=== PATIENT | female | born 1980 ===

== ENCOUNTER 2016-08-10 22:58 | Emergency (ER) | payer MEDICAID, OTHER ==
[2016-08-10 22:58] VITALS: BMI 27.6
[2016-08-10 23:04] VITALS: BP 129/80; PULSE 92; RESP 18; TEMP 98.4; O2SAT 100
[2016-08-10] MEDS ORDERED: Albuterol-Ipratrop 3 mg / 0.5 (3 ml) UD INH STA (23:11)
--- NOTE | 2016-08-10 23:14 | ED PDOC ---
HPI: CCC, URI, Sore Throat Time Seen by Provider: 08/10/16 23:12 Chief Complaint (Nursing): ENT Problem Chief Complaint (Provider): sore throat/cough History Per: Patient (36 y/o female h/o seasonal allergies here with worsening nasal congestion over few weeks now associated with cough/sob/facial pain/sore throat. Denies any smoking. Denies any fevers/chills. Has been on Claritin or Zyrtec intermittently for allergy symptoms.) Past Medical History Reviewed: Historical Data, Nursing Documentation, Vital Signs Vital Signs: Last Vital Signs Temp 98.4 F 08/10/16 23:01 Pulse 92 H 08/10/16 23:01 Resp 18 08/10/16 23:01 BP 129/80 08/10/16 23:01 Pulse Ox 100 08/10/16 23:46 - Surgical History Surgical History: Cholecystectomy (2006) - Family History Family History: States: No Known Family Hx - Home Medications Home Medications: Ambulatory Orders Medication Instructions Recorded Vit Calc,Iron,Folic 1 each PO DAILY 04/02/16 [ Vitamins] Albuterol HFA [Ventolin HFA 90 2 puff IH [id number] PRN #1 inhaler 08/10/16 mcg/actuation (8 g)] Azithromycin [Zithromax] 1 tab PO DAILY #6 tab 08/10/16 Cetirizine HCl [Zyrtec] 10 mg PO DAILY #15 capsule 08/10/16 Fluticasone Nasal [Flonase] 2 actuation NS DAILY #1 bottle 08/10/16 Pseudoephedrine [Sudafed Tab] 60 mg PO Q6 PRN #24 tab 08/10/16 predniSONE [predniSONE Tab] 3 tab PO DAILY #12 tab 08/10/16 - Allergies Allergies/Adverse Reactions: Allergies Allergy/AdvReac Type Severity Reaction Status Date / Time fruit Allergy Intermediate ITCHING Uncoded 03/02/16 10:48 Review of Systems ROS Statement: Except As Marked, All Systems Reviewed And Found Negative ENT: Positive for: Nose Congestion, Throat Pain Respiratory: Positive for: Cough, Shortness of Breath Physical Exam - Reviewed Nursing Documentation Reviewed: Yes Vital Signs Reviewed: Yes - Physical Exam Appears: Positive for: Well, Non-toxic, No Acute Distress Head Exam: Positive for: ATRAUMATIC, NORMAL INSPECTION, NORMOCEPHALIC Skin: Positive for: Normal Color, Warm, DRY Eye Exam: Positive for: EOMI, Normal appearance, PERRL ENT: Positive for: Normal ENT Inspection Neck: Positive for: Normal, Painless ROM Cardiovascular/Chest: Positive for: Regular Rate, Rhythm Respiratory: Positive for: Normal Breath Sounds, Other (diminished breath sounds ) Gastrointestinal/Abdominal: Positive for: Normal Exam, Bowel Sounds, Soft Back: Positive for: Normal Inspection Extremity: Positive for: Normal ROM Neurologic/Psych: Positive for: Alert, Oriented - ECG O2 Sat by Pulse Oximetry: 100 - Progress ED Course And Treament: Prednisone 60mg x 1 dose Duoneb x 1 dose Disposition - Clinical Impression Clinical Impression: Bronchitis, Sinusitis - Patient ED Disposition Is Patient to be Admitted: No - Disposition Disposition: Routine/Home Disposition Time: 23:43 Condition: FAIR Prescriptions: Albuterol HFA [Ventolin HFA 90 mcg/actuation (8 g)] 2 puff IH [id number] PRN #1 inhaler PRN Reason: Shortness Of Breath Azithromycin [Zithromax] 1 tab PO DAILY #6 tab Cetirizine HCl [Zyrtec] 10 mg PO DAILY #15 capsule Fluticasone Nasal [Flonase] 2 actuation NS DAILY #1 bottle predniSONE [predniSONE Tab] 3 tab PO DAILY #12 tab Pseudoephedrine [Sudafed Tab] 60 mg PO Q6 PRN #24 tab PRN Reason: Nasal Congestion Instructions: Allergic Rhinitis (ED), Acute Bronchitis (ED) Forms: [facility] ED School/Work Excuse
[2016-08-10] MEDS ORDERED: Albuterol-Ipratrop 3 mg / 0.5 (3 ml) UD ONE ×2 (23:15→23:38)
== END 2016-08-11 00:22 | disposition home or self-care (01) ==
LOC: H.ER 22:58
DX: J20.9 Acute bronchitis, unspecified (principal); J32.9 Chronic sinusitis, unspecified

== ENCOUNTER 2017-09-08 21:34 | Emergency (ER) | payer MEDICAID ==
[2017-09-08 21:34] VITALS: BMI 27.6
--- NOTE | 2017-09-08 22:44 | ED PDOC ---
HPI: Abdomen Time Seen by Provider: 09/08/17 22:24 Chief Complaint (Nursing): GI Problem Chief Complaint (Provider): Abdominal Pain History Per: Patient History/Exam Limitations: no limitations Onset/Duration Of Symptoms: Days (x4) Current Symptoms Are (Timing): Still Present Location Of Pain/Discomfort: Diffuse Quality Of Discomfort: "Pain" Associated Symptoms: Diarrhea (loose watery) Additional Complaint(s): 37 year old female with a history of cholecystectomy presents to the ED with diffuse abdominal pain onset 4 days associated loose watery diarrhea. Patient denies fever, bleeding, vomiting, or any other medical complaints. PMD: Dr. Wang Abnormal Vaginal Bleeding: No Past Medical History Reviewed: Historical Data, Nursing Documentation, Vital Signs Vital Signs: Last Vital Signs Temp 98.1 F 09/08/17 21:56 Pulse 85 09/08/17 21:56 Resp 16 09/08/17 21:56 BP 127/84 09/08/17 21:56 Pulse Ox 99 09/08/17 22:46 - Medical History PMH: No Chronic Diseases - Surgical History Surgical History: Cholecystectomy (2006) - Family History Family History: States: Unknown Family Hx - Home Medications Home Medications: Ambulatory Orders Medication Instructions Recorded Vit Calc,Iron,Folic 1 each PO DAILY 04/02/16 [ Vitamins] Albuterol HFA [Ventolin HFA 90 2 puff IH [id number] PRN #1 inhaler 08/10/16 mcg/actuation (8 g)] Azithromycin [Zithromax] 1 tab PO DAILY #6 tab 08/10/16 Cetirizine HCl [Zyrtec] 10 mg PO DAILY #15 capsule 08/10/16 Fluticasone Nasal [Flonase] 2 actuation NS DAILY #1 bottle 08/10/16 Pseudoephedrine [Sudafed Tab] 60 mg PO Q6 PRN #24 tab 08/10/16 predniSONE [predniSONE Tab] 3 tab PO DAILY #12 tab 08/10/16 - Allergies Allergies/Adverse Reactions: Allergies Allergy/AdvReac Type Severity Reaction Status Date / Time fruit Allergy Intermediate ITCHING Uncoded 03/02/16 10:48 Review of Systems ROS Statement: Except As Marked, All Systems Reviewed And Found Negative Gastrointestinal: Positive for: Abdominal Pain (diffuse), Diarrhea (loose watery ) Physical Exam - Reviewed Nursing Documentation Reviewed: Yes Vital Signs Reviewed: Yes - Physical Exam Appears: Positive for: Non-toxic, No Acute Distress Head Exam: Positive for: ATRAUMATIC, NORMOCEPHALIC Skin: Positive for: Normal Color, Warm, Dry Eye Exam: Positive for: EOMI, Normal appearance, PERRL ENT: Positive for: Other (dry mucous membranes) Neck: Positive for: Normal, Painless ROM, Supple Cardiovascular/Chest: Positive for: Regular Rate, Rhythm. Negative for: Murmur Respiratory: Positive for: Normal Breath Sounds. Negative for: Respiratory Distress Gastrointestinal/Abdominal: Positive for: Tenderness (epigastric and periumbilical). Negative for: Distended, Guarding, Rebound Back: Negative for: L CVA Tenderness, R CVA Tenderness Extremity: Positive for: Normal ROM (upper and lower) - Laboratory Results Result Diagrams: 09/08/17 22:58 09/08/17 22:58 - ECG O2 Sat by Pulse Oximetry: 99 (RA) Pulse Ox Interpretation: Normal Medical Decision Making Medical Decision Making: Time: 22:38 Initial Plan: --CT abd & pelvis --CMP --Urine preg --Urine dip --CBC with differentials --NS Scribe Attestation: Documented by Mikki Umanzor, acting as a scribe for Peyman Lee MD Provider Scribe Attestation: All medical record entries made by the Scribe were at my direction and personally dictated by me. I have reviewed the chart and agree that the record accurately reflects my personal performance of the history, physical exam, medical decision making, and the department course for this patient. I have also personally directed, reviewed, and agree with the discharge instructions and disposition. Disposition - Clinical Impression Clinical Impression: Abdominal pain - Patient ED Disposition Is Patient to be Admitted: Transfer of Care - Disposition Disposition: Transfer of Care Disposition Time: 23:59 Condition: FAIR Forms: [employer] (N[place]ien) Patient Signed Over To: Chirag Kumar
[2017-09-08] MEDS: Sodium Chloride 0.9% 1,000 ML IV STA (23:02)
[2017-09-08 23:06] LABS: BASO % 0.4 % (0.0-2.0); EOS % 0.2 % (0.0-4.0); HEMOGLOBIN 12.5 g/dL (12.0-16.0); LYMPH # 1.5 K/uL (1.0-4.3); MEAN CELL VOLUME 87.6 fl (81.0-99.0); MEAN CORPUSCULAR HEMOGLOBIN 29.5 pg (27.0-31.0); MEAN CORPUSCULAR HGB CONC 33.7 g/dL (33.0-37.0); MEAN PLATELET VOLUME 7.6 fl (7.2-11.7); MONO # 0.7 K/uL (0.0-0.8); MONO % 8.6 % (0.0-10.0); NEUT % 72.8 % (50.0-75.0); RBC 4.24 Mil/uL (3.80-5.20); RED CELL DISTRIBUTION WIDTH 13.8 % (11.5-14.5); WHITE BLOOD COUNT 8.3 K/uL (4.8-10.8)
[2017-09-08 23:13] LABS: ALB/GLOB RATIO 1.1 (1.0-2.1); ALBUMIN 3.8 g/dL (3.5-5.0); ALT/SGPT 71 U/L (9-52); AST/SGOT 59 U/L (14-36); BLOOD UREA NITROGEN 7 mg/dl (7-17); CALCIUM 9.1 mg/dL (8.4-10.2); GFR AFRICAN-AMERICAN > 60; GFR NON-AFRICAN AMERICAN > 60
[2017-09-08] MEDS ORDERED: Iohexol 300 100 ML IJ ONE (23:35)
[2017-09-08] MEDS ORDERED: Sodium Chloride 0.9% 50 ML IV ONE (23:36)
--- NOTE | 2017-09-09 00:11 | ED PDOC ---
- Laboratory Results Result Diagrams: 09/08/17 22:58 09/08/17 22:58 - ECG O2 Sat by Pulse Oximetry: 99 (RA) Medical Decision Making Medical Decision Makin:00 Patient care endorsed from Dr. Lee to Dr. Kumar pending CT results. 00:55 CT Abd / Pelvis IV contrast FINDINGS: Lung bases: Dependent microatelectasis ABDOMEN: Liver: Mild hepatic steatosis. Gallbladder and bile ducts: Prior cholecystectomy without CT complications. No ductal dilation. Pancreas: Unremarkable. No mass. No ductal dilation. Spleen: Unremarkable. No splenomegaly. Adrenals: Unremarkable. No mass. Kidneys and ureters: No hydronephrosis or differential renal nephrogram. Bilateral extrarenal pelves. Stomach and bowel: Disorganized appearance to the small bowel with serosal margin induration appear fluid-filled non-pathologically distended loops, and collapsed loops without focal transition. There is liquid stool in the colon. Small fat-containing non-bowel containing umbilical hernia. PELVIS: Appendix: Normal appendix.Retrocecal appendix directed cephalad.. Partially fluid distended which is felt to be secondary. Bladder: Unremarkable. No mass. Reproductive: Uterus is mildly prominent likely a reflection of parity or myomata. Nonspecific 3 cm endometrium. Bilateral ovarian follicles including a dominant cyst 3.2 cm left ovarian follicle. If gynecologic source of the patient 's symptoms is suspected additional imaging recommended ABDOMEN and PELVIS: Intraperitoneal space: On series 2 image 57 there is a nonspecific 9 mm rounded fluid attenuation structure in the mesentery. Trace amount of free pelvic fluid of unclear origin or significance.No free air. Bones/joints: No acute fracture. No dislocation. Soft tissues: See above. Vasculature: Unremarkable. No abdominal aortic aneurysm. Lymph nodes: Unremarkable. No enlarged lymph nodes. IMPRESSION: CT findings are compatible for nonspecific enterocolitis. Statistically infectious/inflammatory Prior cholecystectomy. Patient informed of results. Patient starting to improve, will give NSAID and bentyl for cramping. Stable for d/c. Patient without fever or white count, ABx not indicated at this time. Scribe Attestation: Documented by Patricia Nuñez, acting as a scribe for Chirag Kumar MD. Provider Scribe Attestation: All medical entries made by the Scribe were at my direction and personally dictated by me. I have reviewed the chart and agree that the record accurately reflects my personal performance of the history, physical exam, medical decision making, and the department course for this patient. I have also personally directed, reviewed, and agree with the discharge instructions and disposition. Disposition - Clinical Impression Clinical Impression: Enterocolitis - POA Present On Arrival: None - Disposition Referrals: Angeles Wang MD [Family Provider] - Disposition: Routine/Home Disposition Time: 01:00 Condition: STABLE Prescriptions: Dicyclomine [Bentyl] 20 mg PO BID #30 tab Ondansetron [Zofran] 4 mg PO Q8H #12 tab Instructions: Acute Abdomen (Belly Pain), Adult (DC), Nausea and Vomiting, Adult Forms: [facility] ([place]ux[place]ish)
[2017-09-09 01:32] VITALS: BP 120/76; PULSE 80; RESP 18; TEMP 98.3
[2017-09-09 06:38] VITALS: O2SAT 99
--- NOTE | 2017-09-09 13:09 | CT ---
PROCEDURE: CT Abdomen and Pelvis with contrast HISTORY: Abd pain diarrhea COMPARISON: Pelvic ultrasound 05/01/2014. TECHNIQUE: Following the intravenous administration of iodinated contrast material, a CT examination of the abdomen and pelvis performed from the domes of the diaphragms to the symphysis pubis with reformatted datasets provided not only axial but also sagittal and coronal planes. Oral contrast was not administered as per referring physician request. Contrast dose: On upright 300, 90 cc Radiation dose: Total exam DLP = 420.12 mGy-cm. This CT exam was performed using one or more of the following dose reduction techniques: Automated exposure control, adjustment of the mA and/or kV according to patient size, and/or use of iterative reconstruction technique. FINDINGS: LOWER THORAX: Limited bibasilar dependent atelectasis. Small hiatal hernia. LIVER: Unremarkable. No gross lesion or ductal dilatation. GALLBLADDER AND BILE DUCTS: Prior cholecystectomy. PANCREAS: Unremarkable. No gross lesion or ductal dilatation. SPLEEN: Unremarkable. ADRENALS: Unremarkable. No mass. KIDNEYS AND URETERS: Mildly prominent right extrarenal pelvis. Prominent left extrarenal pelvis. No hydronephrosis. No solid mass. VASCULATURE: Unremarkable. No aortic aneurysm. BOWEL: Stomach is largely collapsed, minimally filled fluid. Liquid fecal material is seen within large bowel suggestive of diarrhea. No prominent mural thickening of large bowel is appreciated. Small bowel is not fully distended and variable collapse identified in fact limiting evaluation of the small bowel wall. Limited enteritis not completely excluded but is not definitively favored either. No mesenteric edema or local fluid collection associated with small-bowel loops specifically. APPENDIX: Normal appendix. PERITONEUM: Unremarkable. No free fluid. No free air. LYMPH NODES: Unremarkable. No enlarged lymph nodes. BLADDER: Unremarkable. REPRODUCTIVE: Left adnexal cyst 2.8 x 2.6 cm. BONES: No acute fracture. OTHER FINDINGS: None. IMPRESSION: 1. Potential segmental enteritis. Diarrhea suggested involving large-bowel. No bowel obstruction, measure edema, ascites or free intrarenal gas. 2. Prior cholecystectomy. 3. Bilateral extrarenal pelves. 4. Left adnexal cyst 2.8 x 2.6 cm.
== END 2017-09-09 01:49 | disposition home or self-care (01) ==
LOC: H.ER 21:34
DX: K52.9 Noninfective gastroenteritis and colitis, unspecified (principal); Z90.49 Acquired absence of other specified parts of digestive tract
CPT/HCPCS: 74177; 80053; 81025; 85025; 96374; 99283; J1885; J7030; Q9967